=== PATIENT | female | born 1930 | race Caucasian/White ===

== ENCOUNTER → 2017-11-20 | Outpatient (CLI) | payer MEDICARE, OTHER ==
[~2017-11-20] MED LIST: ASPIR 8181 MG PO; BENAZEPRIL-HCT1 EA11 PO; CLONAZEPAM 1 MG1 M1 PO; ELIQUIS5 MG PO; HYDROCODON-ACE1 EAC5 PO; IRON325 PO; LIPITOR 20 MG T20 M1 PO; LISINOPRIL5 MG PO; NEURONTIN600 MG PO; NORCO 5-325 TA1 EACH PO; PACERONE 200 M200 M1 PO; PLAVIX 75 MG TA75 M1 PO; RANITIDINE HCL150 M1 PO; SERTRALINE HCL100 MG PO; SYSTANE 0.3-0.1 EACH OP; SYSTANE ULTRA1 EACH OP; VICODIN 5-5001 EACH; ZOLOFT 50 MG TA50 M1 PO
--- NOTE | 2017-11-20 12:43 | 2DMMODE ---
[place] [address] 2 D/M-MODE ECHOCARDIOGRAM Name: SAGARJUDY M Room: [facility]#: [id number] Admission: 11/20/17 Attend Phys: Melinda Geller, Discharge: Date of : 34 Date of Service: 11/20/17 1242 Report #: [id number] THIS REPORT FOR: //name// APPROVED REPORT Study performed: 11/20/2017 08:46:13 EXAM: Comprehensive 2D, Doppler, and color-flow Echocardiogram Patient Location: Out-Patient Status: routine BSA: 1.53 HR: 87 bpm BP: 110/80 mmHg Other Information Study Quality: Good Indications Cardiomyopathy 2D Dimensions LVEF(%): 79.10 (>50%) IVSd: 12.18 (7-11mm) LVOT Diam: 19.27 (18-24mm) LVDd: 41.76 mm PWd: 11.15 (7-11mm) Ascending Ao: 34.19 (22-36mm) LVDs: 22.00 (25-40mm) Aortic Root: 20.16 mm Stone's LVEF: 79.10 % Volumes Left Atrial Volume (Systole) LA ESV Index: 55.00 mL/m2 Aortic Valve AoV Peak Fahad.: 1.78 m/s AO Peak Gr.: 12.74 mmHg LVOT Max P.25 mmHg AO Mean Gr.: 7.68 mmHg LVOT Mean P.14 mmHg LVOT Max V: 0.75 m/s AO V2 VTI: 37.93 cm LVOT Mean V: 0.49 m/s DINO (VTI): 1.39 cm2 LVOT V1 VTI: 18.11 cm Mitral Valve MV Peak Gr.: 8.23 mmHg MV Mean Gr.: 3.22 mmHg E/A Ratio: 2.45 [place] [address] 2 D/M-MODE ECHOCARDIOGRAM Name: JUDY KEITH Room: [facility]#: [id number] Admission: 11/20/17 Attend Phys: Melinda Geller, Discharge: Date of : 34 Date of Service: 11/20/17 1242 Report #: [id number] MV Decel. Time: 148.55 ms MV E Max Fahad.: 1.42 m/s MV PHT: 43.08 ms MVA (PHT): 5.11 cm2 TDI E/Lateral E': 12.91 E/Medial E': 20.29 Medial E' Fahad.: 0.07 m/s Lateral E' Fahad.: 0.11 m/s Pulmonary Valve PV Peak Fahad.: 0.89 m/s PV Peak Gr.: 3.14 mmHg Tricuspid Valve TR Peak Gr.: 34.35 mmHg RVSP: 39.35 mmHg Left Ventricle The left ventricle is normal size. There is normal LV segmental wall motion. Borderline concentric left ventricular hypertrophy. Left ventricular systolic function is borderline. LVEF is 50-55%. The left ventricular diastolic function is normal. Right Ventricle The right ventricle is normal size. The right ventricular systolic function is normal. Pacemaker lead is present in the right ventricle. Atria Left atrium is moderately dilated. Right atrium is moderately dilated. Aortic Valve Aortic valve is calcified. No aortic regurgitation is present. No hemodynamically significant valvular aortic stenosis. Mitral Valve Severe mitral annular calcification. Mild to moderate mitral regurgitation. No evidence of mitral valve stenosis. Tricuspid Valve The tricuspid valve is normal in structure. Mild to moderate tricuspid regurgitation. The RVSP is _39 mmHg. Pulmonic Valve The pulmonary valve is normal in structure. Mild pulmon[place] [address] 2 D/M-MODE ECHOCARDIOGRAM Name: JUDY KEITH Room: [facility]#: [id number] Admission: 11/20/17 Attend Phys: Melinda Geller, Discharge: Date of : 34 Date of Service: 11/20/17 1242 Report #: [id number] Great Vessels The aortic root is normal in size. IVC is normal in size and collapses with >50% inspiration Pericardium There is no pericardial effusion. <Conclusion> The left ventricle is normal size. Borderline concentric left ventricular hypertrophy. Left ventricular systolic function is borderline. LVEF is 50-55%. The left ventricular diastolic function is normal. The right ventricle is normal size. Left atrium is moderately dilated. Right atrium is moderately dilated. Aortic valve is calcified. No aortic regurgitation is present. No hemodynamically significant valvular aortic stenosis. Severe mitral annular calcification. Mild to moderate mitral regurgitation. No evidence of mitral valve stenosis. The tricuspid valve is normal in structure. Mild to moderate tricuspid regurgitation. The RVSP is _39 mmHg. IVC is normal in size and collapses with >50% inspiration There is no pericardial effusion. There is normal LV segmental wall motion. Pacemaker lead is present in the right ventricle. <ELECTRONICALLY SIGNED> By: Neal Honeycutt MD, FACC 11/20/17 1242 1242 [id number] Neal Honeycutt MD, FACC /INF
== END ==
LOC: M.CRD 08:29
DX: I08.1 Rheumatic disorders of both mitral and tricuspid valves (principal); I42.9 Cardiomyopathy, unspecified

== ENCOUNTER 2018-09-01 12:39 | Inpatient (IN) | payer MEDICARE, OTHER ==
[~2018-09-01] VITALS: Ht 149.9 cm; Wt 59.5 kg
[~2018-09-01 12:39] MED LIST changes: +SYSTANE ULTRA 010 ML OPHTHALMIC; -SYSTANE ULTRA1 EACH OP
[2018-09-01 12:41] VITALS: BP 131/56
[2018-09-01] MEDS ORDERED: XARELTO10 M1 PO (12:49)
[2018-09-01 13:32] LABS: ABSOLUTE EOSINOPHILS 0.1 thou/uL (0.0-0.7); ABSOLUTE LYMPHOCYTES 0.7 thou/uL (0.8-5.3); ABSOLUTE MONOCYTES 0.5 thou/uL (0.0-1.2); ABSOLUTE NEUTROPHILS 3.4 thou/uL (1.6-8.1); BASOPHILS 0.9 %; EOSINOPHILS 2.5 %; HEMATOCRIT 32.6 % (37.0-47.0); HEMOGLOBIN 10.9 gm/dL (12.0-15.0); LYMPHOCYTES 14.5 %; MCH 31.9 pg (26.0-34.0); MCHC 33.3 g/dL (28.0-37.0); MCV 95.8 fL (80.0-100.0); MONOCYTES 10.7 %; MPV 9.3 fl. (7.2-11.1); NUCLEATED RBCS 0 /100WBC; PLATELET COUNT* 141 thou/uL (150-400); POLYS 71.4 %; RDW-CV 15.1 % (10.5-14.5); WBC 4.8 thou/uL (4.0-11.0)
[2018-09-01 13:45] LABS: CREATININE 0.9 mg/dL (0.6-1.3); POTASSIUM 3.6 mmol/L (3.5-5.1)
[2018-09-01 13:50] LABS: ALBUMIN 3.7 g/dL (3.4-5.0); TOTAL BILIRUBIN 0.8 mg/dL (<0.1-1.0); TOTAL PROTEIN 6.7 g/dL (6.4-8.2)
[2018-09-01 17:21] VITALS: BP 116/54
[2018-09-01 17:57] VITALS: BP 107/74
--- NOTE | 2018-09-01 19:34 | NUR ---
ASSUMED PT CARE @ 1745. PT ORIENTED TO ROOM. PT ALERT AND ORIENTED X 4. C/O PAIN IN RIGHT GROIN. DENIES NAUSEA. ASSESSMENT COMPLETED. IV PATENT. SPOKE WITH DAUGHTER ROLAN ON PHONE TO UPDATE. OXYGEN @ 2 L/NC. PT WILL USE CALL LIGHT FOR ASSISTANCE.
[2018-09-01 20:50] VITALS: BP 123/31
--- NOTE | 2018-09-02 04:51 | NUR ---
PATIENT HAS REMAINED ALERT AND ORIENTED X 4 THROUGHOUT THE SHIFT AND RESTING QUIETLY ON HOURLY ROUNDS. VOIDS PER BEDPAN. O2 REMAINS ON AT 2L/MIN FROM ER. MEDICATED FOR PAIN X 1 THIS SHIFT; RIGHT GROIN AND ACROSS TO PUBIC BONE. PAIN IS INTERMITTANT WITH INCREASE WHEN ROLLING TO SIDE. GOOD RESPONSE FROM PAIN MEDICATIONS. VITAL SIGNS STABLE. CONTINUE TO MONITOR.
[2018-09-02 08:00] VITALS: BP 117/46
[2018-09-02 18:00] VITALS: BP 107/45
--- NOTE | 2018-09-02 19:03 | NUR ---
PT ALERT AND ORIENTED X 4. REPORTED MININAL PAIN. RECEIVED TYLENOL FOR PAIN. TOPICAL CREAM APPLIED TO RIGHT HIP AREA. IV PATENT. USES BEDPAN. HOURLY ROUNDS MAINTAINED. WILL USE CALL LIGHT FOR ASSISTANCE. CALL LIGHT WITHIN REACH.
[2018-09-02 19:30] VITALS: BP 119/44
[2018-09-03 04:25] LABS: HEMOGLOBIN 9.7 gm/dL (12.0-15.0); MCH 32.1 pg (26.0-34.0); MCHC 33.5 g/dL (28.0-37.0); MCV 95.8 fL (80.0-100.0); MPV 9.3 fl. (7.2-11.1); RBC 3.03 mil/uL (4.20-5.00); RDW-CV 15.1 % (10.5-14.5); WBC 6.3 thou/uL (4.0-11.0)
[2018-09-03 04:56] LABS: CALCIUM 8.5 mg/dL (8.5-10.1); CREATININE 0.8 mg/dL (0.6-1.3); POTASSIUM 4.7 mmol/L (3.5-5.1)
--- NOTE | 2018-09-03 05:25 | NUR ---
PATIENT HAS REMAINED ALERT AND ORIENTED X 4 THROUGHOUT THE SHIFT AND RESTING QUIETLY ON HOURLY ROUNDS. PAIN HAS IMPROVED SOMEWHAT. MOVING BETTER INDEPENDENTLY IN THE BED. ALSO TRANSFERED WITH MIN ASSIST FROM BED TO WHEELCHAIR TO GO TO CT THIS PAST EVENING AND TOLERATED WELL. CT RESULTS PENDING. VITAL SIGNS STABLE. CONTINUE TO MONITOR.
[2018-09-03 08:00] VITALS: BP 128/53
[2018-09-03] MEDS ORDERED: PREDNISONE 20 M20 MG PO (12:55)
[2018-09-03 13:17] VITALS: BP 128/53
--- NOTE | 2018-09-03 14:47 | NUR ---
PATIENT LEFT UNIT AT 1330. ALERT AND ORIENTED X4. UP WITH ASSISTANCE OF 1 WITH WALKER AND GAIT BELT. DENIES NEED FOR PAIN MEDICATION THIS SHIFT. DENIES NAUSEA. TOLERATING DIET. ALL PERSONAL ITEMS LEFT WITH PATIENT. DISCHARGE INSTRUCTIONS, PRESCRIPTIONS, AND NEW MEDICATION INFORMATION SENT WITH PATIENT. VSS ON ROOM AIR. HOURLY ROUNDS HAVE BEEN MAINTAINED THROUGHOUT SHIFT. LEFT WITH DAUGHTER VIA CAR.
[2018-09-03 14:50] VITALS: BP 128/53
--- NOTE | 2018-09-03 15:10 | NUR ---
PT.DISCHARGED WHILE CM WAS OFF UNIT. SHE HAD TO LEAVE HER RIDE WAS THERE. SHE LIVES ALONE BUT DAUGHTER LIVES SEVERAL HOUSES AWAY AND IS SUPPORTIVE. SHE WILL DO WHATEVER NEEDED TO HELP HER MOM. PT.CHOSE [facility] FOR [facility]. NURSING DISCUSSED WITH HER. PROMISE CONTACTED [facility] AND FAXED ORDERS TO HER. NSG,PT,OT,AIDE AND SW ORDERED. PT.ABLE TO WALK SHORT DISTANCES WITH THERAPY TODAY. CALLED PT.AT HOME TO TELL HER HOME HEALTH WAS ALL SET UP AND WOULD CALL HER TOMORROW TO SET UP APPT.
--- NOTE | 2018-09-03 18:22 | NUR ---
RN HAS REVIEWED AND AGREES WITH STUDENT NURSES CHARTING.
== END 2018-09-03 13:30 | disposition home health service (06) | DRG 554 ==
LOC: M.ERS 12:39 → M.TBA-ER 14:53 → M.ORTHSURG 14:53
PROVIDERS: Physician Assistant; ADMIT Family Medicine
DX: M16.11 Unilateral primary osteoarthritis, right hip (principal); I50.42 Chronic combined systolic (congestive) and diastolic (congestive) heart failure; M47.26 Other spondylosis with radiculopathy, lumbar region; M51.16 Intervertebral disc disorders with radiculopathy, lumbar region; R26.2 Difficulty in walking, not elsewhere classified; M79.81 Nontraumatic hematoma of soft tissue; I48.91 Unspecified atrial fibrillation; S70.01XA Contusion of right hip, initial encounter; X58.XXXA Exposure to other specified factors, initial encounter; Z79.01 Long term (current) use of anticoagulants; Z86.73 Personal history of transient ischemic attack (TIA), and cerebral infarction without residual deficits; Y93.89 Activity, other specified; Z79.82 Long term (current) use of aspirin; Z79.899 Other long term (current) drug therapy; Y92.89 Other specified places as the place of occurrence of the external cause; Y99.8 Other external cause status

== ENCOUNTER → 2018-11-21 | Outpatient (CLI) | payer MEDICARE, OTHER ==
[~2018-11-21] MED LIST changes: +PREDNISONE 20 M20 MG PO; +XARELTO10 M1 PO
== END ==
LOC: M.RAD 08:42
DX: R91.8 Other nonspecific abnormal finding of lung field (principal); Z79.899 Other long term (current) drug therapy; Z95.0 Presence of cardiac pacemaker